=== PATIENT | male | born 1980 | race African-American/Black ===

== ENCOUNTER 2022-07-18 12:58 | Emergency (ER) | payer BC ==
[~2022-07-18] VITALS: Ht 188 cm; Wt 100.0 kg
[2022-07-18 13:01] VITALS: BP 123/55
[2022-07-18] MEDS ORDERED: ONDANSETRON 4MG ODT PO NR (14:00)
[2022-07-18] MEDS ORDERED: DICYCLOMINE HCL 10MG CAPSULE PO ONE (14:00)
[2022-07-18] MEDS ORDERED: HYDR25SU7 RC (16:06)
[2022-07-18] MEDS ORDERED: ONDA4TAB11 PO (16:06)
== END 2022-07-18 17:17 | disposition home or self-care (01) ==
LOC: ER 12:58
DX: R19.7 Diarrhea, unspecified (principal); B34.9 Viral infection, unspecified; K64.9 Unspecified hemorrhoids; J45.909 Unspecified asthma, uncomplicated
CPT/HCPCS: 99281; Q0162

== ENCOUNTER 2022-08-02 04:57 | Inpatient (IN) | payer BC ==
[~2022-08-02] VITALS: Ht 195.6 cm; Wt 126.1 kg
[2022-08-02] VITALS (9 sets, daily range): BP systolic 103–115; BP diastolic 51–68
[~2022-08-02 04:57] MED LIST: HYDR25SU7 RC; ONDA4TAB11 PO
[2022-08-02] MEDS ORDERED: MAGNESIUM/ALUMINUM HYDROXIDE/SIMETHICONE 30ML UDC PO STA (05:36)
[2022-08-02] MEDS ORDERED: ONDANSETRON HCL 4MG/2ML INJ IV STA (05:36)
[2022-08-02] MEDS ORDERED: SODIUM CHLORIDE 0.9% 1,000 ML IV ONE (05:45)
[2022-08-02 05:58] LABS: BASOPHILS % 0.5 % (0.0-2.0); EOSINOPHILS % 0.3 % (0.0-5.0); HEMATOCRIT. 23.9 % (42.0-52.0); LYMPHOCYTES % 15.8 % (20.0-50.0); MEAN CORPUSCULAR HEMOGLOBIN 16.7 pg (28.0-32.0); MEAN CORPUSCULAR VOLUME 61.5 fL (80.0-94.0); MEAN PLATELET VOLUME 8.3 fl (7.4-10.4); MONOCYTES % 8.1 % (2.0-8.0); NEUTROPHILS % 75.3 % (40.0-76.0); PLATELET 132 x1000/uL (130-400); RED BLOOD CELL COUNT 3.88 mill/uL (4.7-6.1); RED CELL DISTRIBUTION WIDTH 32.3 % (11.6-14.6)
[2022-08-02 06:07] LABS: HEMOGLOBIN. 6.5 g/dL (14.0-18.0)
[2022-08-02 06:23] LABS: CHLORIDE 106 mEq/L (98-107)
[2022-08-02 06:49] LABS: PLATELET ESTIMATE NORMAL
[2022-08-02] MEDS ORDERED: IOHEXOL-350 100 ML BOTTLE ONE (09:10)
[2022-08-02] MEDS ORDERED: POTASSIUM CHLORIDE 20MEQ/PACKET PO NR ×2 (09:45→16:30)
[2022-08-02] MEDS ORDERED: MORPHINE SULFATE 4 MG/ML CPJ (NOT FOR IM USE) IV ONE (09:45)
[2022-08-02] MEDS ORDERED: CLONIDINE 0.1MG TABLET PO PRN (12:00)
[2022-08-02] MEDS ORDERED: HYDROCODONE/ACETAMINOPHEN 5/325MG TABLET PO PRN (12:00)
[2022-08-02] MEDS ORDERED: ACETAMINOPHEN 325MG TABLET PO PRN ×2 (12:00)
[2022-08-02] MEDS ORDERED: ONDANSETRON HCL 4MG/2ML INJ IV PRN (12:00)
[2022-08-02] MEDS ORDERED: DOCUSATE SODIUM 100MG CAPSULE PO PRN (12:00)
[2022-08-02] MEDS ORDERED: IPRATROPIUM/ALBUTEROL 0.5-3(2.5)MG/3ML NEB HHN PRN (12:00)
[2022-08-02] MEDS ORDERED: LORAZEPAM 0.5MG TABLET PO PRN (12:00)
[2022-08-02] MEDS ORDERED: IPRATROPIUM BROMIDE (0.02%) 0.5MG/2.5ML NEB HHN PRN (12:15)
[2022-08-02] MEDS ORDERED: ALBUTEROL (0.083%) 2.5MG/3ML NEB HHN PRN (12:15)
[2022-08-02] MEDS ORDERED: NALOXONE HCL 0.4MG/ML VIAL IV PRN (12:15)
[2022-08-02] MEDS ORDERED: DIPHENHYDRAMINE 25MG CAPSULE PO SCH (14:15)
[2022-08-02 16:09] LABS: INR 1.2; PROTHROMBIN TIME 12.8 sec (9.6-11.0)
[2022-08-02 16:20] LABS: TOTAL IRON BINDING CAPACITY 433 ug/dL (250-450)
[2022-08-02 16:26] LABS: FERRITIN < 5 ng/mL (22-322)
[2022-08-02 16:30] LABS: VITAMIN B12 SERUM 491 pg/mL (211-911)
[2022-08-02] MEDS ORDERED: METOCLOPRAMIDE HCL 10MG/2ML VIAL IV SCH ×2 (16:30→20:30)
[2022-08-02] MEDS ORDERED: BISACODYL 5MG TABLET PO SCH ×2 (16:30→20:30)
[2022-08-02] MEDS ORDERED: SORBITOL 70% SOLN 30ML PO SCH ×2 (17:00→21:00)
[2022-08-02] MEDS: BISACODYL 5MG TABLET PO SCH ×2 (17:37→20:28)
[2022-08-02] MEDS: METOCLOPRAMIDE HCL 10MG/2ML VIAL IV SCH ×2 (17:37→20:25)
[2022-08-02] MEDS: SORBITOL 70% SOLN 30ML PO SCH ×2 (18:14→21:18)
[2022-08-02 20:03] LABS: HEMATOCRIT 25.4 % (42.0-52.0); HEMOGLOBIN 7.6 g/dL (14.0-18.0); MEAN CORPUSCULAR HEMOGLOBIN 19.7 pg (28.0-32.0); MEAN CORPUSCULAR VOLUME 65.8 fL (80.0-94.0); PLATELET 114 x1000/uL (130-400); RED BLOOD CELL COUNT 3.86 mill/uL (4.7-6.1)
[2022-08-02] MEDS: PANTOPRAZOLE SODIUM 40 MG/VIAL IV SCH (21:19)
[2022-08-03] VITALS (7 sets, daily range): BP systolic 90–122; BP diastolic 48–71
[2022-08-03] MEDS ORDERED: POTASSIUM CHLORIDE 20MEQ/PACKET PO NR (00:30)
[2022-08-03] MEDS: METOCLOPRAMIDE HCL 10MG/2ML VIAL IV SCH (02:37)
[2022-08-03] MEDS: BISACODYL 5MG TABLET PO SCH (02:38)
[2022-08-03] MEDS: SORBITOL 70% SOLN 30ML PO SCH (02:38)
[2022-08-03 03:34] LABS: CHLORIDE 111 mEq/L (98-107)
[2022-08-03 03:35] LABS: INR 1.1; PROTHROMBIN TIME 12.2 sec (9.6-11.0)
[2022-08-03 03:36] LABS: BASOPHILS % 0.7 % (0.0-2.0); EOSINOPHILS % 4.4 % (0.0-5.0); HEMATOCRIT. 27.3 % (42.0-52.0); HEMOGLOBIN. 8.2 g/dL (14.0-18.0); MEAN CORPUSCULAR HEMOGLOBIN 19.4 pg (28.0-32.0); MEAN CORPUSCULAR VOLUME 64.5 fL (80.0-94.0); MEAN PLATELET VOLUME 8.8 fl (7.4-10.4); MONOCYTES % 9.5 % (2.0-8.0); NEUTROPHILS % 55.4 % (40.0-76.0); PLATELET 141 x1000/uL (130-400); RED BLOOD CELL COUNT 4.23 mill/uL (4.7-6.1); RED CELL DISTRIBUTION WIDTH 34.6 % (11.6-14.6)
[2022-08-03] MEDS: PANTOPRAZOLE SODIUM 40 MG/VIAL IV SCH ×2 (08:44→20:44)
[2022-08-03] MEDS ORDERED: LIDOCAINE HCL 1% 20ML VIAL (Pyxis) INJ ONE (12:40)
[2022-08-03] MEDS ORDERED: MIDAZOLAM HCL 2 MG/2 ML VIAL ONE (12:45)
[2022-08-03] MEDS ORDERED: FENTANYL CITRATE/PF 50MCG/ML 2ML VIAL ONE (12:46)
[2022-08-03] MEDS ORDERED: DEXAMETHASONE 4MG/ML 1ML VIAL ONE (12:48)
[2022-08-03] MEDS ORDERED: ONDANSETRON HCL 4MG/2ML INJ ONE (12:48)
[2022-08-03] MEDS ORDERED: PROPOFOL 200MG/20ML VIAL IV ONE ×4 (12:48→13:50)
[2022-08-03] MEDS ORDERED: BARIUM SULFATE(VOLUMEN) 450 ML ORAL.SUSP ONE (15:41)
[2022-08-03] MEDS: IRON SUCROSE COMPLEX 100 MG/5 ML ML IV SCH (18:58)
[2022-08-04] VITALS: BP 121/64
[2022-08-04 00:23] LABS: CLARITY URINE CLEAR (CLEAR); COLOR URINE YELLOW (YELLOW); KETONES URINE NEGATIVE (NEGATIVE); LEUKOCYTE ESTERASE URINE NEGATIVE (NEGATIVE); NITRITE URINE NEGATIVE (NEGATIVE); OCCULT BLOOD URINE NEGATIVE (NEGATIVE); PROTEIN URINE NEGATIVE (NEGATIVE); SPECIFIC GRAVITY URINE 1.074 (1.005-1.030); UROBILINOGEN URINE 0.2 E.U./dL (0.2-1.0)
[2022-08-04 00:46] LABS: *AMPHETAMINES SCREEN URINE NEGATIVE (NEGATIVE); *BARBITURATES SCREEN URINE NEGATIVE (NEGATIVE); *BENZODIAZEPINES SCREEN URINE PRESUMTIVE POSITIVE (NEGATIVE); *COCAINE SCREEN URINE NEGATIVE (NEGATIVE); CANNABINOID URINE SCREEN PRESUMTIVE POSITIVE (NEGATIVE); METHADONE URINE SCREEN NEGATIVE (NEGATIVE); OPIATES URINE SCREEN NEGATIVE (NEGATIVE); PHENCYCLIDINE URINE SCREEN NEGATIVE (NEGATIVE)
[2022-08-04 08:00] VITALS: BP 110/57
[2022-08-04] MEDS: IRON SUCROSE COMPLEX 100 MG/5 ML ML IV SCH (08:56)
[2022-08-04] MEDS: PANTOPRAZOLE SODIUM 40 MG/VIAL IV SCH (08:56)
[2022-08-04 12:00] VITALS: BP 112/67
[2022-08-04] MEDS ORDERED: FERR325T6 MT (12:30)
[2022-08-04 13:14] VITALS: BP 112/67
[2022-08-05 13:06] LABS: ATYPICAL P-ANCA <1:20 titer (Neg:<1:20); ATYPICAL pANCA <1:20 titer (Neg:<1:20); CYTOPLASMIC C-ANCA <1:20 titer (Neg:<1:20); PERINUCLEAR P-ANCA <1:20 titer (Neg:<1:20)
== END 2022-08-04 13:40 | disposition home or self-care (01) | DRG 379 ==
LOC: ER 04:57 → 7EST 06:39
PROVIDERS: ADMIT Internal Medicine; ATTEND Internal Medicine
PROC: 30233N1 Transfusion of Nonautologous Red Blood Cells into Peripheral Vein, Percutaneous Approach (ICD-10-PCS; principal; 2022-08-02)
PROC: 0DBN8ZZ Excision of Sigmoid Colon, Via Natural or Artificial Opening Endoscopic (ICD-10-PCS; 2022-08-03)
PROC: 0DB98ZX Excision of Duodenum, Via Natural or Artificial Opening Endoscopic, Diagnostic (ICD-10-PCS; 2022-08-03)
PROC: 0DB78ZX Excision of Stomach, Pylorus, Via Natural or Artificial Opening Endoscopic, Diagnostic (ICD-10-PCS; 2022-08-03)
DX: K29.71 Gastritis, unspecified, with bleeding (principal); D50.9 Iron deficiency anemia, unspecified; J45.909 Unspecified asthma, uncomplicated; K63.5 Polyp of colon; K44.9 Diaphragmatic hernia without obstruction or gangrene; E87.6 Hypokalemia; K52.9 Noninfective gastroenteritis and colitis, unspecified; Z20.822 Contact with and (suspected) exposure to COVID-19
CPT/HCPCS: 36415; 74174; 74177; 80048; 80053; 80305; 81003; 82105; 82378; 82607; 82728; 82746; 83520; 83540; 83550; 85025; 85027; 85044; 86256; 86301; 86671; 86850; 86900; 86920; 86945; 87426; 88305; 99291; C9113; C9803; J1100; J2250; J2270; J2405; J2704; J2765; J3010; J3490; J7030; P9016; Q0163; Q9967